=== PATIENT | female | born 1970 | race Caucasian/White ===

== ENCOUNTER 2020-09-24 23:49 | Emergency (ER) | payer OTHER ==
[2020-09-25 00:21] LABS: BASOPHIL 0.4 % (0-2); EOSINOPHIL 2.2 % (0-5); HCT 42.3 % (37.0-47.0); HGB 13.8 g/dl (12.5-16.0); LYMPHOCYTE 33.8 % (15-48); MCH 29.5 pg (25.0-31.0); MCHC 32.6 g/dL (32.0-36.0); MCV 90.4 fL (78.0-100.0); MONOCYTE 8.2 % (0-12); MPV 9.1 fL (6.0-9.5); NEUTROPHIL 55.1 % (41-80); NRBC 0; PLT 374 K/uL (150-400); RBC 4.68 M/uL (4.20-5.40); RDW 12.2 % (11.5-14.0); WBC 9.8 K/uL (4.0-10.5)
[2020-09-25 00:29] LABS: INR 0.95 (0.9-1.2); PTT 25.3 SECONDS (22.2-34.7)
[2020-09-25 00:37] LABS: ALBUMIN 3.8 g/dL (3.4-5.0); BILIRUBIN - TOTAL 0.3 mg/dL (0.2-1.0); BUN/CREAT RATIO (CALC) 21.1 RATIO; CREATININE 0.76 mg/dL (0.51-0.95); POTASSIUM 3.3 mmol/L (3.5-5.1); TOTAL PROTEIN 7.8 g/dL (6.4-8.2)
[2020-09-25] MEDS ORDERED: ALPRAZOLAM XR0.5 MG PO (01:34)
== END 2020-09-25 02:00 | disposition home or self-care (01) ==
LOC: FER 23:49
PROVIDERS: Emergency Medicine
DX: R07.89 Other chest pain (principal); R00.0 Tachycardia, unspecified; R42 Dizziness and giddiness; Z87.19 Personal history of other diseases of the digestive system
CPT/HCPCS: 36415; 71045; 80053; 84484; 85025; 85610; 85730; 93005